=== PATIENT | female | born 1990 | race Caucasian/White ===

== ENCOUNTER 2016-11-08 17:32 | Outpatient (CLI) | payer OTHER ==
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
== END 2016-11-08 23:00 ==
LOC: XR SRH 17:32
DX: T74.11XA Adult physical abuse, confirmed, initial encounter (principal)